=== PATIENT | female | born 1980 | race American Indian/Alaskan Native ===

== ENCOUNTER 2019-01-23 21:48 | Emergency (ER) | payer MEDICAID ==
--- NOTE | 2019-01-24 00:07 | Emergency Department Report ---
ED General Adult HPI - General Chief complaint: Headache Stated complaint: HEAD PAIN EYE PAIN Time Seen by Provider: 01/23/19 22:13 Source: patient Mode of arrival: Ambulatory Limitations: No Limitations - History of Present Illness Initial comments: Pt is a 38 yo female who presents with c/o sinus pressure that began 2-3 days ago. The patient has associated rhinorrhea, and pressure around her eyes, and a GIBSON. The patient denies any cough or fever. The patient states she used mary seltzer for a cold which she says gave her some relief. MD Complaint: sinus pressure, GIBSON Onset/Timin -: days(s) Severity scale (0 -10): 10 Quality: aching Improves with: medication Worsens with: none Associated Symptoms: headaches. denies: cough, fever/chills, nausea/vomiting, shortness of breath - Related Data Previous Rx's Medication Instructions Recorded Last Taken Type Amoxicillin [Amoxicillin TAB] 875 mg PO BID 10 Days #20 tablet 01/24/19 Unknown Rx Fluticasone [Flonase] 1 spray NS QDAY #1 bottle 01/24/19 Unknown Rx Allergies Allergy/AdvReac Type Severity Reaction Status Date / Time No Known Allergies Allergy Unverified 01/23/19 21:51 ED Review of Systems ROS: Stated complaint: HEAD PAIN EYE PAIN Other details as noted in HPI Comment: All other systems reviewed and negative ED Past Medical Hx - Past Medical History Previous Medical History?: No - Surgical History Additional Surgical History: tubiligation - Social History Smoking Status: Current Every Day Smoker Substance Use Type: None - Medications Home Medications: Home Medications Medication Instructions Recorded Confirmed Last Taken Type Amoxicillin [Amoxicillin TAB] 875 mg PO BID 10 Days #20 tablet 01/24/19 Unknown Rx Fluticasone [Flonase] 1 spray NS QDAY #1 bottle 01/24/19 Unknown Rx ED Physical Exam - General Limitations: No Limitations General appearance: alert, in no apparent distress - Head Head exam: Present: atraumatic, normocephalic - Eye Eye exam: Present: normal appearance - ENT ENT exam: Present: normal orophraynx, TM's normal bilaterally, normal external ear exam, other (edema to the bilateral turbinates with erythema with purulent drainage ) - Neck Neck exam: Present: normal inspection (TTP of the maxillary sinuses bilaterally ) - Respiratory Respiratory exam: Present: normal lung sounds bilaterally. Absent: respiratory distress, wheezes, rales, rhonchi, stridor, chest wall tenderness, accessory muscle use, decreased breath sounds, prolonged expiratory - Cardiovascular Cardiovascular Exam: Present: regular rate, normal rhythm, normal heart sounds. Absent: systolic murmur, rubs, gallop - Neurological Exam Neurological exam: Present: alert, oriented X3 - Psychiatric Psychiatric exam: Present: normal affect, normal mood ED Course Vital Signs 01/23/19 22:13 Temperature 97.9 F Pulse Rate 71 Respiratory 16 Rate Blood Pressure 138/91 O2 Sat by Pulse 100 Oximetry ED Medical Decision Making - Medical Decision Making Pt presents with sinus pressure, GIBSON, and rhinorrhea for 3 days. On examination she has purulent drainage and irritation of the turbinates. She also has TTP of the maxillary sinuses, frontal sinuses are normal. Will give pt antibiotic and flonase. Advised pt to follow up with PCP in the next 2-3 days. Discussed with pt to return to the ED if new or worsening sx. Critical care attestation.: If time is entered above; I have spent that time in minutes in the direct care of this critically ill patient, excluding procedure time. ED Disposition Clinical Impression: Sinusitis Qualifiers: Sinusitis location: unspecified location Chronicity: acute Recurrence: non- recurrent Qualified Code(s): J01.90 - Acute sinusitis, unspecified Disposition: TO HOME OR SELFCARE Is pt being admited?: No Does the pt Need Aspirin: No Condition: Stable Instructions: Sinusitis (ED) Additional Instructions: Follow up with primary care doctor in the next 2-3 days. Take medication as prescribed. Return to the emergency department if new or worsening sx. Prescriptions: Amoxicillin [Amoxicillin TAB] 875 mg PO BID 10 Days #20 tablet Fluticasone [Flonase] 1 spray NS QDAY #1 bottle Referrals: DEVON VAUGHAN MD [Primary Care Provider] - 3-5 Days Time of Disposition: 00:17 Print Language: BENGALI
== END 2019-01-24 00:29 | disposition home or self-care (01) ==
LOC: ED 21:48
CPT/HCPCS: 99282